=== PATIENT | female | born 1945 | race Caucasian/White ===

== ENCOUNTER 2017-01-27 09:53 | Outpatient (CLI) | payer MEDICARE, OTHER ==
[2017-01-27 12:53] LABS: #Basophils 0.1 thou/uL (0.0-0.2); #Eosinphils 0.1 thou/uL (0.0-0.7); #Lymphocytes 1.5 thou/uL (1.20-3.40); #Monocytes 0.4 thou/uL (0.11-0.59); %Basophils 1.5 % (0.0-1.0); %Eosinophils 2.3 % (0.0-10.0); %Lymphocytes 36.8 % (21.0-51.0); %Monocytes 9.7 % (0.0-10.0); %Neutrophils 49.6 % (42.0-75.0); Hemoglobin 11.7 g/dL (12.0-16.0); Mean Corpuscular Hemoglobin 31.8 pg (27.0-31.0); Mean Corpuscular Volume 96.5 fl (81.0-99.0); Mean Platelet Volume 7.9 fL (7.4-10.4); Platelet Count 201 thou/uL (130-400); RBC Distribution Width 11.7 % (11.5-14.5); Red Blood Cell (RBC) Count 3.69 mill/uL (4.20-5.40)
[2017-01-27 13:22] LABS: Cardiac Risk 4.1 (Less than 4.5)
== END 2017-01-27 09:54 | disposition home or self-care (01) ==
LOC: NAVSJIPCSP 09:53
PROVIDERS: ATTEND Internal Medicine
DX: E78.5 Hyperlipidemia, unspecified (principal); Z79.899 Other long term (current) drug therapy
CPT/HCPCS: 36415; 80061; 85025

== ENCOUNTER 2017-02-03 10:05 | Outpatient (CLI) | payer MEDICARE, OTHER ==
[2017-02-03 12:52] LABS: Free T4 (Free Thyroxine) 1.34 ng/dL (0.70-1.48); Thyroid Stimulating Hormone 2.6575 uIU/mL (0.35-4.94)
== END 2017-02-03 10:06 | disposition home or self-care (01) ==
LOC: NAVSJIPCSP 10:05
PROVIDERS: ATTEND Internal Medicine
DX: E03.9 Hypothyroidism, unspecified (principal)
CPT/HCPCS: 36415; 84439; 84443; 84481

== ENCOUNTER 2017-04-27 10:16 | Outpatient (CLI) | payer MEDICARE, OTHER ==
[2017-04-27 12:52] LABS: #Basophils 0.1 thou/uL (0.0-0.2); #Eosinphils 0.1 thou/uL (0.0-0.7); #Lymphocytes 1.8 thou/uL (1.20-3.40); #Monocytes 0.4 thou/uL (0.11-0.59); #Neutrophils 2.7 thou/uL (1.40-6.50); %Basophils 1.3 % (0.0-1.0); %Eosinophils 1.6 % (0.0-10.0); %Lymphocytes 35.4 % (21.0-51.0); %Monocytes 7.7 % (0.0-10.0); %Neutrophils 54.1 % (42.0-75.0); Mean Corpuscular HGB CONC 32.8 g/dL (32.0-36.0); Mean Corpuscular Hemoglobin 31.2 pg (27.0-31.0); Mean Corpuscular Volume 95.4 fl (81.0-99.0); Mean Platelet Volume 7.9 fL (7.4-10.4); Platelet Count 212 thou/uL (130-400); Red Blood Cell (RBC) Count 3.84 mill/uL (4.20-5.40)
[2017-04-27 18:47] LABS: Cardiac Risk 4.3 (Less than 4.5)
== END 2017-04-27 10:17 | disposition home or self-care (01) ==
LOC: NAVSJIPCSP 10:16
PROVIDERS: ATTEND Internal Medicine
DX: E78.5 Hyperlipidemia, unspecified (principal); Z79.899 Other long term (current) drug therapy
CPT/HCPCS: 36415; 80061; 85025

== ENCOUNTER 2018-02-18 14:39 | Outpatient (CLI) | payer MEDICARE, OTHER ==
--- NOTE | 2018-02-18 15:21 | RAD ---
SI JOINTS 3 VIEWS: Date: 02/18/18 HISTORY: Low back pain. SI joint pain. FINDINGS: SI joints are fairly symmetric. There is some fairly minimal arthritic change noted. No bony ankylosi s or sclerosis. Mild arthritic changes of both hips are noted. Degenerative changes of lower lumbar s pine are seen. IMPRESSION: No acute changes. POS: [facility]
--- NOTE | 2018-02-18 15:28 | RAD ---
LUMBAR SPINE 3 VIEWS: Date: 02/18/18 HISTORY: Low back pain. FINDINGS: Degenerative changes are present, predominantly in the lower lumbar spine. There is minimal retrolist hesis of L5 over S1. No fracture or bony destruction is seen. IMPRESSION: Lumbar spondylosis. POS: [facility]
== END 2018-02-18 14:40 | disposition home or self-care (01) ==
LOC: NAV RAD 14:39
PROVIDERS: ATTEND Internal Medicine
DX: M47.896 Other spondylosis, lumbar region (principal); G89.29 Other chronic pain
CPT/HCPCS: 72100; 72202

== ENCOUNTER 2019-02-01 13:24 | Outpatient (CLI) | payer MEDICARE, OTHER ==
--- NOTE | 2019-02-01 13:44 | CT ---
CT head without contrast: Multiple axial tomograms obtained through the head without IV enhancement. INDICATIONS: Syncopal episode COMPARISON: None FINDINGS: Ventricles have normal size and position. No evidence of intracranial mass, hemorrhage, edema, or infarct. Bilateral basal ganglia calcificatio ns are noted. Visualized sinuses and mastoids appear clear. Bony calvarium appears unremarkable. IMPRESSION: No acute finding
--- NOTE | 2019-02-01 14:22 | ULT ---
BILATERAL CAROTID DUPLEX ULTRASOUND: HISTORY: Syncope and collapse this morning. TECHNIQUE: Grayscale, color-flow and spectral Doppler ultrasound imaging of the extracranial carotid artery syst ems was performed bilaterally. FINDINGS: Minimal atherosclerotic plaque is seen in the region of the right carotid bulb and in the right exter nal carotid artery. No significant atherosclerotic plaque is appreciated in the left internal carotid artery. There is no hemodynamically significant stenosis in the bilateral internal carotid arteries according to the peak systolic velocities and the ICA/CCA ratios. The peak systolic velocity in the right ICA measures 109.6 cm/s. The peak systolic velocity in the left ICA measures 80.2 cm/s. The right I CA/CCA ratio is 1.67 with left ICA/CCA ratio of 1.38 Vertebral arteries: Antegrade flow is demonstrated in the vertebral arteries bilaterally. IMPRESSION: No hemodynamically significant stenosis in the bilateral internal carotid arteries.
== END 2019-02-01 13:25 | disposition home or self-care (01) ==
LOC: NAV CT 13:24
PROVIDERS: ATTEND Internal Medicine
DX: R55 Syncope and collapse (principal)
CPT/HCPCS: 70450; 93880